=== PATIENT | female | born 1980 | race Caucasian/White ===

== ENCOUNTER 2016-05-12 12:12 | Emergency (ER) | payer OTHER ==
[2016-05-12 12:39] VITALS: BP 115/76
--- NOTE | 2016-05-12 13:23 | RAD ---
HISTORY: Foreign body sensation in throat COMPARISONS: None VIEWS: 2, frontal and lateral views of the neck FINDINGS: There is straightening of the cervical lordosis. The prevertebral soft tissues are normal. The aryepiglottic folds are normal. There is continuous air column from the pharynx through the trachea. There is no radiopaque foreign body. The lung apices are clear. IMPRESSION: UNREMARKABLE SOFT TISSUES OF THE NECK
--- NOTE | 2016-05-12 13:47 | UC ---
Neck Pain HPI - HPI Summary HPI Summary: VOMITED THIS WEEKEND (FIVE DAYS AGO), HAD "STOMACH BUG" RECOVERED FROM SYMPTOMS ; HOWEVER, SINCE THAT TIME HAS FELT LIKE SOMRTHING IS STUCK IN THROAT ON RIGHT SIDE. WONDERS IF SOMETHING IS STUCK IN THROAT. ABLE TO SWALLOW AMD DRINK WATER; ONLY SENSATION OF SOMETHING STUCK ON RIGHT SIDE OF THROAT. . SIMILAR SYMPTOMS HAD HAPPENED SEVERAL YEARS AGO AND RESOLVED ON ITS OWN. NO FEVER. NO COUGH. NO STOMACH PAIN. - History of Current Complaint Chief Complaint: UCGeneralIllness Stated Complaint: SORE THROAT Time Seen by Provider: 05/12/16 12:23 Hx Obtained From: Patient Hx Last Menstrual Period: Onset/Duration Of Injury/Symptoms: Days Mechanism Of Injury: FB Potential Timing: Intermittent Episodes Onset/Duration: Gradual Onset, Lasting Days, Still Present Severity: Mild Location: Discrete At: - RIGHT THROAT Character: Dull Aggravating Factors: Other: - OCCASIONAL SENSATION WITH SWALLOWING Alleviating Factors: Nothing Associated Signs & Symptoms: Negative: Swelling, Redness, Fever, Nuchal Rigity, Weakness, Headache, Paresthesia Related History: Similar Episode/Dx As: - SEVERAL YEARS AGO, RESOLVED SPOTANEOUSLY - Risk Factors Meningitis Risk Factors: Negative - Allergies/Home Medications Allergies/Adverse Reactions: Allergies Allergy/AdvReac Type Severity Reaction Status Date / Time Penicillins [PCN] Allergy Rash Verified 06/20/15 13:54 PMH/Surg Hx/FS Hx/Imm Hx Previously Healthy: Yes Endocrine History Of: Denies: Diabetes, Thyroid Disease, Hyperthyroidism, Hypothyroidism, Dyslipidemia Cardiovascular History Of: Reports: Cardiac Disorders - Innocent heart murmur. Denies: Hypertension, Pacemaker/ICD, Myocardial Infarction, Congestive Heart Failure, Atrial Fibrillation, Deep Vein Thrombosis, Bleeding Disorders Respiratory History Of: Denies: COPD, Asthma, Bronchitis, Pneumonia, Pulmonary Embolism GI/ History Of: Denies: Gastroesophageal Reflux, Ulcer, Gastrointestinal Bleed, Gall Bladder Disease, Kidney Stones, Diverticulitis, Renal Disease, Urosepsis Neurological History Of: Denies: TIA, CVA, Dementia, Seizures, Migraine Psychological History Of: Reports: Anxiety Denies: Depression, Bipolar Disorder, Schizophrenia, Post Traumatic Stress Disorder Cancer History Of: Denies: Lung Cancer, Colorectal Cancer, Breast Cancer, Prostate Cancer, Cervical Cancer Other History Of: Negative For: HIV, Hepatitis B, Hepatitis C, Anticoagulant Therapy - Surgical History Surgical History: Yes Surgery Procedure, Year, and Place: breast implants - Family History Known Family History: Positive: None Negative: Cardiac Disease, Respiratory Disease - Social History Occupation: Employed Full-time Alcohol Use: Rare Substance Use Type: None Smoking Status (MU): Never Smoked Tobacco Have You Smoked in the Last Year: No - Immunization History Most Recent Influenza Vaccination: [id number] Most Recent Tetanus Shot: 10/04/14 Most Recent Pneumonia Vaccination: none Review Of Systems Constitutional: Positive: Negative Skin: Positive: Negative Eyes: Positive: Negative ENT: Positive: Sore Throat Respiratory: Positive: Negative Cardiovascular: Positive: Negative Gastrointestinal: Positive: Negative Genitourinary: Positive: Negative Musculoskeletal: Positive: Negative Neurological: Positive: Negative Psychological: Positive: Negative All Other Systems Reviewed And Are Negative: Yes Physical Exam Triage Information Reviewed: Yes Appearance: Well-Appearing, No Pain Distress, Well-Nourished, Thin Vital Signs: Initial Vital Signs Temp 98.7 F 05/12/16 12:30 Pulse 77 05/12/16 12:30 Resp 16 05/12/16 12:30 BP 115/76 05/12/16 12:30 Pulse Ox 100 05/12/16 12:30 Vital Signs Reviewed: Yes Eye Exam: Normal Eyes: Positive: Conjunctiva Clear ENT: Positive: Hearing grossly normal, Pharynx normal, TMs normal, Tonsillar swelling - MILD R>L Dental Exam: Normal Neck: Positive: Supple, Tenderness @ - RIGHT ANTERIOR CERVIAL LN, Enlarged Nodes @ - RIGHT ANTERIOR CERVIAL LN. Negative: Nuchal Rigidity Respiratory Exam: Normal Respiratory: Positive: Chest non-tender, Lungs clear, Normal breath sounds, No respiratory distress Cardiovascular Exam: Normal Cardiovascular: Positive: RRR, No Murmur Abdominal Exam: Normal Abdomen Description: Positive: Nontender, No Organomegaly Musculoskeletal Exam: Normal Neurological Exam: Normal Psychological Exam: Normal Psychological: Positive: Normal Response To Family Skin Exam: Normal Neck Pain Course/Dx - Differential Dx/Diagnosis Differential Dx/HQI/PQRI: Sprain, Strain, Trauma Provider Diagnoses: RIGHT ANTERIOR CERVICAL LYMPHADENOPATHY Discharge - Discharge Plan Condition: Stable Disposition: HOME Patient Education Materials: Lymphadenopathy (ED), Tonsillitis (ED) Referrals: [facility] [place] [facility] REFERRAL [Outside]
== END 2016-05-12 13:47 | disposition home or self-care (01) ==
LOC: UCEAST 12:12
DX: R59.0 Localized enlarged lymph nodes (principal); Z88.0 Allergy status to penicillin
CPT/HCPCS: 70360; 87651; 99211; G0463